=== PATIENT | male | born 1950 | race Asian ===

== ENCOUNTER → 2017-01-07 | Outpatient (CLI) | payer MEDICARE, OTHER ==
--- NOTE | ~2017-01-07 | MR165 ---
[facility]. [facility] A Service of [facility] RADIOLOGY TEXT RESULTS PATIENT: DELMI CHINCHILLA [facility] UN[facility] #: [id number] AGE: [address]: JANNET WILL APRN SEX: M ORDER DR: [id number] [facility] [address]. [place], [place] [address] [id number] O MR#: [id number] #: [id number] NAME: DELMI CHINCHILLA : 1950 SEX: M STUDY DATE/TIME: 01/07/2017 16:01 UNIT: [facility] ROOM: STUDY DESCRIPTION: MR Shoulder Wo Contrast Rt Attending Physician: Jannet Will Aprn Referring Physician: Jannet Will Aprn Ordering Physician: Jannet Will Aprn Primary Care Physician: Jannet Will Aprn MRI CENTER REPORT This report is preliminary unless electronic signature is present. EXAM MRI of the right shoulder 01/07/2017 HISTORY Order states right shoulder pain, upper extremity neuropathy. History sheet states pain started 3 years ago. 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 Pain in all directions. No shoulder surgery or specific injury reported. COMPARISON None. FINDINGS There is a tiny inferior osteophyte of the clavicle. There is no high-grade AC joint arthrosis. Coracoclavicular and coracoacromial ligaments are intact. There is minimal infraspinatus tendinosis without a tear. Supraspinatus and teres minor tendons are intact. There is longitudinal tendinosis with probable minimal longitudinal cystic change of the subscapularis tendon with insertional cystic enthesopathy at the lesser tuberosity. There is mild associated marrow edema. The rotator cuff muscles are normal. Biceps anchor, biceps tendon, and glenoid labrum are normal. The glenohumeral joint shows no effusion, chondral/osteochondral lesion, loose body, or visible capsular inflammation. IMPRESSION 1. Subscapularis tendinosis with cystic enthesopathy and mild marrow [facility] A Service of [facility] RADIOLOGY TEXT RESULTS PATIENT: DELMI CHINCHILLA LOCATION: [facility] : 50 UNIT #: [id number] AGE: [address]: JANNET WILL APRN SEX: M ORDER DR: edema at the lesser tuberosity without a tear. 2. Minimal infraspinatus tendinosis without a tear. 3. Tiny clavicular spur but no high-grade AC joint arthrosis. Dictated by... Keisha West M.D. THIS IS AN ELECTRONICALLY VERIFIED REPORT Keisha West M.D. at 01/08/2017 1:56 PM KEARA/lucy TD: 01/08/2017 10:42 JOB #: [id number] MRI CENTER REPORT Page 1 of 1 COPY
== END | disposition home or self-care (01) ==
LOC: CMRI 15:22
DX: M25.511 Pain in right shoulder (principal); G56.91 Unspecified mononeuropathy of right upper limb; M75.81 Other shoulder lesions, right shoulder; M25.411 Effusion, right shoulder
CPT/HCPCS: 73221